=== PATIENT | male | born 1980 | race Caucasian/White ===

== ENCOUNTER 2019-03-01 11:23 | Emergency (ER) | payer OTHER ==
[~2019-03-01] VITALS: Ht 180.3 cm; Wt 145.6 kg
[~2019-03-01 11:23] MED LIST: AMOXICILLIN500 M1; CLINDAMYCIN300 M1 PO; GOOD SENSE ASPI81 M3 PO; LAC PO; LEVAQUIN750 MG PO; MOTRIN800 MG
[2019-03-01 11:32] VITALS: Ht 180.3 cm; Wt 145.6 kg
[2019-03-01 13:57] LABS: BASOPHIL % 0.8 % (0-2); PLATELET COUNT 295 x10^3mcL (130-400)
[2019-03-01 14:15] LABS: CALCIUM 9.1 mg/dL (8.5-10.1); CARBON DIOXIDE 31.4 mmol/L (21-32); CHLORIDE SERUM 105 mmol/L (98-107); CREATININE SERUM 0.8 mg/dL (0.7-1.3); GFR1 > 60 mL/min; GLUCOSE SERUM 131 mg/dL (74-106); POTASSIUM SERUM 4.1 mmol/L (3.5-5.1); SODIUM SERUM 142 mmol/L (136-145)
[2019-03-01 14:19] LABS: ALBUMIN 3.4 g/dL (3.4-5.0); ALKALINE PHOSPHATASE 88 U/L (46-116); ALT/SGPT 37 U/L (16-63); AMYLASE 70 U/L (25-115); AST/SGOT 23 U/L (15-37); BILIRUBIN TOTAL 0.3 mg/dL (0.20-1.00); LIPASE 380 IU/L (73-393)
[2019-03-01 16:59] VITALS: BP 160/103
== END 2019-03-01 16:59 | disposition home or self-care (01) ==
LOC: ED 11:23
PROVIDERS: Specialist
DX: K80.20 Calculus of gallbladder without cholecystitis without obstruction (principal); E66.9 Obesity, unspecified; F10.120 Alcohol abuse with intoxication, uncomplicated
CPT/HCPCS: 36415; J1885

== ENCOUNTER 2019-03-31 10:28 | Inpatient (IN) | payer OTHER ==
[~2019-03-31] VITALS: Ht 180.3 cm; Wt 133.8 kg
[2019-03-31 10:44] VITALS: Ht 180.3 cm; Wt 133.8 kg
--- NOTE | 2019-03-31 10:50 | NUR ---
pt bib adult son from home for one month old rt low back area pains,vas 10/10 now,radiates to rt low abd area.pt took rx meds at home.awaits er md evaluations/assessments.minda joseph.
--- NOTE | 2019-03-31 11:15 | NUR ---
er md at bedside too evaluations/assessments.minda joseph.adult son bedside.awaits reevaluations.
--- NOTE | 2019-03-31 11:45 | NUR ---
IV ACCESS started aseptically with blood drawn/sent to lab,ivf started.iv meds given per er md orders.pt tolerated procedures with no incidents.awaits test results,reevaluations.minda joseph.
[2019-03-31 11:54] LABS: BASOPHIL % 1.5 % (0-2); PLATELET COUNT 316 x10^3mcL (130-400); RED CELL DISTRIBUTION WIDTH 12.9 % (11.5-14.5)
[2019-03-31 12:19] LABS: CALCIUM 9.4 mg/dL (8.5-10.1); CARBON DIOXIDE 25.1 mmol/L (21-32); CHLORIDE SERUM 101 mmol/L (98-107); CREATININE SERUM 1.1 mg/dL (0.7-1.3); GFR1 > 60 mL/min; GLUCOSE SERUM 123 mg/dL (74-106); POTASSIUM SERUM 4.2 mmol/L (3.5-5.1); SODIUM SERUM 140 mmol/L (136-145)
[2019-03-31 12:24] LABS: ALBUMIN 3.8 g/dL (3.4-5.0); ALKALINE PHOSPHATASE 121 U/L (46-116); ALT/SGPT 31 U/L (16-63); AST/SGOT 31 U/L (15-37); BILIRUBIN TOTAL 0.68 mg/dL (0.20-1.00); LIPASE 313 IU/L (73-393)
--- NOTE | 2019-03-31 14:43 | NUR ---
er md at bedside for reevaluations.adult female relative bedside.awaits reevaluations,md consult,bed assignment.minda joseph.
--- NOTE | 2019-03-31 15:22 | NUR ---
RESTING TAM ROUSSEAU.AWAITS MD CONSULT,REEVALUATIONS.
--- NOTE | 2019-03-31 16:15 | NUR ---
MD CONSULT AT BEDSIDE FOR EVALUATIONS/ASSESSMNETS.TAM ROUSSEAU.ADULT SON BEDSIDE TRANSLATING.AWAITS REEVALUATIONS.
--- NOTE | 2019-03-31 16:40 | NUR ---
DR. GEE HERE, SHE IS W/ DR. DEYVI ZHANG. SHE STATES THEY WERE CALLED BY DR. HOUSE TO CONSULT. SHE STATES THEY SEE ALL [facility] SURGICAL PATIENTS. WE HAD CALLED DR. PLAZA WHO IS PUBLIC POLICY MANAGER FOR SURGERY TODAY & HE HAS ALREADY CAME DOWN & SAW THE PT. WE CALLED DR. PLAZA BACK, APOLOGISZED, & EXPLAINED THE SITATION & THAT DR. DEYVI ZHANG WILL BE THE SURGEON.
--- NOTE | 2019-03-31 16:44 | NUR ---
MD/SURGEON AT BEDSIDE FOR EVALUATIONS/ASSESSMENTS.TAM ROUSSEAU.AWAITS BED ASSIGNMENT,REEVALUATIONS.2 ADULT FAMILY BEDSIDE.
--- NOTE | 2019-03-31 16:57 | NUR ---
ATTEMPTED TO GIVE FLOOR REPORT,RN assigned kvng rn still in admission process on current pt.cone formerortho rn jacek rn made aware.
--- NOTE | 2019-03-31 17:21 | NUR ---
PT ENDORSED TO/ACCEPTED BY [facility].AWAITS [facility]SP[facility],REEVALUATIONS.
--- NOTE | 2019-03-31 17:21 | NUR ---
RECEIVED REPORT FROM CANDIE CASTRO IN ED. AWAITING PATIENT ARRIVAL TO FLOOR.
[2019-03-31] MEDS ORDERED: TRAMADOL HCL50 MG ×2 (17:22→17:25)
[2019-03-31] MEDS ORDERED: PROTONIX20 MG ×2 (17:23→17:25)
[2019-03-31] MEDS ORDERED: NORCO1 TA2 (17:23)
[2019-03-31] MEDS ORDERED: APAP/HYDROCODON1 T13 (17:25)
[2019-03-31 17:50] VITALS: BP 136/76
--- NOTE | 2019-03-31 17:59 | NUR ---
RECEIVED PT FROM ER, PT ADMIT FOR PANCREATIC MASS, PT IS A/O X4, VERBAL RESPONSIVE, ABLE TO TELL WHAT HE NEEDS. LUNG SOUND CLEAR BILATERAL, NO COUGH, NO SOB, PT IS ON TELE 8, NSR, DENY ANY CHEST PAIN, BOWEL SOUND HYPOACTIVE, NO DISTENTION, BUT C/O RIGHT FLANK PAIN 10/10, PEDAL PULSE PRESENT BOTH FEET, NO EDEMA, IV AT RIGHT AC, NO LEAKING, NO INFILTRATION. ALL ADLS ASSIST, ALL NEED MET, CALL LIGHT IN REACH, WILL CONTINUE TO MONITOR.
--- NOTE | 2019-03-31 18:31 | NUR ---
PATIENT BEING TAKEN DOWN FOR HIDA SCAN VIA WHEELCHAIR NOW.
--- NOTE | 2019-03-31 19:30 | NUR ---
REPORT GIVEN TO TESSA CASTRO. PATIENT IS STILL DOWNSTAIRS FOR HIDA SCAN. AWAITING PATIENT RETURN TO FLOOR. ALL QUESTIONS AND CONCERNS ADDRESSED. ALL CARES ENDORSED.
--- NOTE | 2019-03-31 20:45 | NUR ---
RECIEVED PT FROM NUCLEAR MEDICINE, PT STATES THEYRE IN A LOT OF PAIN MEDICATED PRN PER PHYSICIANS ORDER.
[2019-03-31 22:00] VITALS: BP 103/54
[2019-03-31 22:50] VITALS: BP 142/77
--- NOTE | 2019-03-31 22:59 | NUR ---
PT REPORTS PAIN HAS RETURNED TO 10/10 TO UPPER ABD AND RADIATING TO BACK, MEDICATED PRN PER ORDER, WILL CONTINUE TO MONITOR
[2019-04-01 00:55] VITALS: BP 130/70
--- NOTE | 2019-04-01 02:00 | NUR ---
PT RESTING IN BED WITH AT BEDSIDE, PT REPORTS PAIN IS MORE CONTROLED AT THIS TIME, BUT PATIENT IS STILL GUARDING , ALL NEEDS ATTENDED TO AT THIS TIME, SAFETY PRECAUTIONS IN PLACE, WILL CONTINUE TO MONITOR
--- NOTE | 2019-04-01 04:57 | NUR ---
PT REPORTS PAIN STILL UNCONTROLLED AFTER ADMINISTRATIONS OF MORPHINE, ADMINISTERED DILAUDID IV , BLOOD PRESSURE 122/68, HR 87, RR 20, WILL CONTINUE TO MONITOR
[2019-04-01 05:34] VITALS: BP 121/72
--- NOTE | 2019-04-01 06:03 | NUR ---
PT WAS IN IN INTERMITENT PAIN THROUGH SHIFT WHICH WAS TREATED WITH PRN ADMINISTRATION OF PAIN MEDS THAT BROUGHT PAIN DOWN TO AN TOLERABLE LEVEL PER PATIENT, REMAINED AT BEDSIDE THROUGH EVENING, ALL PT NEEDS ATTENDED TO, WILL CONTINUE TO MONITOR AND ENDORSE CARE
[2019-04-01 06:36] LABS: BASOPHIL % 0.6 % (0-2); PLATELET COUNT 239 x10^3mcL (130-400); RED CELL DISTRIBUTION WIDTH 12.8 % (11.5-14.5)
[2019-04-01 07:08] LABS: ALKALINE PHOSPHATASE 95 U/L (46-116); ALT/SGPT 35 U/L (16-63); AST/SGOT 29 U/L (15-37); BILIRUBIN TOTAL 0.5 mg/dL (0.20-1.00); CALCIUM 8.5 mg/dL (8.5-10.1); CARBON DIOXIDE 25.6 mmol/L (21-32); CHLORIDE SERUM 107 mmol/L (98-107); CREATININE SERUM 0.8 mg/dL (0.7-1.3); GFR1 > 60 mL/min; GLUCOSE SERUM 108 mg/dL (74-106); POTASSIUM SERUM 4.1 mmol/L (3.5-5.1); SODIUM SERUM 143 mmol/L (136-145); TOTAL PROTEIN, SERUM 7.6 g/dL (6.4-8.2)
[2019-04-01 07:11] LABS: ALBUMIN 3.2 g/dL (3.4-5.0)
--- NOTE | 2019-04-01 09:45 | NUR ---
DR DICKERSON AND DR GEE WAS AT BEDSIDE W/ PASSENGER ATTENDANT. INFORMED PATIENT OF CT RESULTS SHOWING PANCREAS MASS AND OPTIONS FOR TREATMENT PLAN, NO NECESSARY SURGICAL INTERVENTION FOR CHOLECYSTITIS AT THIS TIME. PATIENT MAY BE DISCHARGED HOME ON PAIN MEDS/NARCOTICS FOR PAIN MANAGMENT UNTIL OUTPATIENT APPOINTMENT WITH DR DICKERSON ON WEDNESDAY FOR FURTHER DIAGNOSTICS/BIOPSY. PATIENT MAY EAT/DRINK WATER NOW. PATIENT AND AT BEDSIDE VERBALIZED UNDERSTANDING AND COOPERATIVE W/ PLAN.
[2019-04-01 11:55] VITALS: BP 126/78
--- NOTE | 2019-04-01 13:21 | NUR ---
DR WILLSON WAS AT BEDSIDE, INFORMED DR OF PATIENT RECONSIDERING TO STAY INPATIENT- WORRIED ABOUT NOT BEING ABLE TO CONTROL PAIN WITH PRESCRIPTION EFFECTIVE CURRENT IVP MEDS HERE. DR WILLSON SPOKE W/ PATIENT AND FAMILY AND PLAN SET TO DISCHARGE PATIENT TODAY, FENTANYL PATCH ORDERED TO GIVE NOW. PER PHARMACYST, UNABLE TO VERIFY PATIENT DOES NOT MEET CRITERIA FOR MEDICATION (PATIENT NEEDS TO BE ON DILAUDID/MORPHINE FIRST FOR CERTAIN AMOUNT OF TIME). DR WILLSON ORDERED MS CONTIN INSTEADY AND MADE PRESCRIPTION, PER DR WILLSON SHRED FENTANYL PATCH PRESCRIPTION. MS CONTIN GIVEN TO PATIENT. WILL MONITOR RESPONSE.
--- NOTE | 2019-04-01 14:30 | NUR ---
PATIENT C/O PERSISTENT ABD PAIN NOT RELIEVED WITH MS CONTIN AFTER 1 HOUR ADMINISTRATION. REMINDED PATIENT AND FAMILY THAT PO MEDICATION TAKES TIME TO TAKE EFFECT. PATIENT C/O 10/10 ABD PAIN AND REQUESTING FOR IMMEDIATE RELIEF. MORPHINE IVP GIVEN FOR BREAKTHRU PAIN. WILL CONT TO MONITOR.
[2019-04-01 16:07] VITALS: BP 126/78
--- NOTE | 2019-04-01 16:58 | NUR ---
PATIENT C/O PERSISTENT PAIN THAT INTENSIFIED BACK AT 10/10, REQUESTING FOR IV MED. DR WILLSON MADE AWARE, NO IV PAIN MED PATIENT WILL STILL BE DISCHARGED TODAY PER . TELEPHONE READBACK ORDER RECEIVED FOR OXYCONTIN 20MG Q4HP. GIVEN AND EXPLAINED AGAIN THE PRESCRIPTION, WHEN AND HOW OFTEN TO TAKE. PATIENT VERBALIZED UNDERSTANDING AND REQUESTING TO BE DISCHARGED NOW. INSTRUCTIONS PROVIDED, IV DC'D CATH INTACT, TELE RETURNED TO STATION. ALL QUESTIONS/CONCERNS ADDRESSED. LEAVING UNIT VIA WHEELCHAIR.
== END 2019-04-01 16:58 | disposition home or self-care (01) | DRG 436 ==
LOC: ED 10:28 → DU 16:30 → MU 04-01 16:38
PROVIDERS: Emergency Medicine; ADMIT Internal Medicine Pulmonary Disease
DX: C25.9 Malignant neoplasm of pancreas, unspecified (principal); Z68.41 Body mass index [BMI] 40.0-44.9, adult; E66.9 Obesity, unspecified; K80.20 Calculus of gallbladder without cholecystitis without obstruction; Z80.1 Family history of malignant neoplasm of trachea, bronchus and lung; Z81.2 Family history of tobacco abuse and dependence; Z83.3 Family history of diabetes mellitus
CPT/HCPCS: 78226; A9537; G0378; J0696; J1170; J1885; J2270; J2405; J2543; J3490; J7030; J7042; Q0092; Q9967

== ENCOUNTER 2019-04-08 23:53 | Inpatient (IN) | payer OTHER ==
[~2019-04-08] VITALS: Ht 180.3 cm; Wt 135.0 kg
[~2019-04-08 23:53] MED LIST changes: +APAP/HYDROCODON1 T13; +NORCO1 TA2; +PROTONIX20 MG; +TRAMADOL HCL50 MG
[2019-04-09] VITALS (7 sets, daily range): BP systolic 118–142; BP diastolic 71–88
[2019-04-09 01:20] LABS: BASOPHIL % 0.5 % (0-2); PLATELET COUNT 301 x10^3mcL (130-400); RED CELL DISTRIBUTION WIDTH 12.9 % (11.5-14.5)
[2019-04-09 01:39] LABS: CHLORIDE SERUM 97 mmol/L (98-107); CREATININE SERUM 0.9 mg/dL (0.7-1.3); GFR1 > 60 mL/min; GLUCOSE SERUM 127 mg/dL (74-106); POTASSIUM SERUM 4.9 mmol/L (3.5-5.1); SODIUM SERUM 134 mmol/L (136-145)
[2019-04-09 01:57] LABS: ALKALINE PHOSPHATASE 130 U/L (46-116); ALT/SGPT 65 U/L (16-63); AMYLASE 57 U/L (25-115); AST/SGOT 45 U/L (15-37); BILIRUBIN TOTAL 0.9 mg/dL (0.20-1.00); LIPASE 406 IU/L (73-393); TOTAL PROTEIN, SERUM 8.1 g/dL (6.4-8.2)
[2019-04-09 01:58] LABS: ALBUMIN 3.1 g/dL (3.4-5.0)
[2019-04-09] MEDS ORDERED: OXYCODONE HYDRO10 M1 PO (05:23)
[2019-04-09] MEDS ORDERED: MORPHINE SULFAT30 M6 PO (05:24)
[2019-04-09 07:29] LABS: PHOSPHOROUS 4.5 mg/dL (2.5-4.9)
[2019-04-10 05:47] VITALS: BP 139/80
[2019-04-10 07:16] LABS: BASOPHIL % 0.8 % (0-2); PLATELET COUNT 316 x10^3mcL (130-400); RED CELL DISTRIBUTION WIDTH 12.9 % (11.5-14.5)
[2019-04-10 07:33] LABS: CALCIUM 9.1 mg/dL (8.5-10.1); CARBON DIOXIDE 26.6 mmol/L (21-32); CHLORIDE SERUM 100 mmol/L (98-107); CREATININE SERUM 0.8 mg/dL (0.7-1.3); GFR1 > 60 mL/min; GLUCOSE SERUM 105 mg/dL (74-106); POTASSIUM SERUM 4.2 mmol/L (3.5-5.1); SODIUM SERUM 137 mmol/L (136-145)
[2019-04-10 08:11] VITALS: BP 124/78
[2019-04-10] MEDS ORDERED: LACTULOSE10 GM/152 PO (11:39)
[2019-04-10 12:09] VITALS: BP 123/81
[2019-04-10 12:58] VITALS: BP 123/81
[2019-04-10 20:46] VITALS: BP 121/80
[2019-04-11 05:03] VITALS: BP 120/79
[2019-04-11 08:43] VITALS: BP 112/82
[2019-04-11 12:33] VITALS: BP 139/84
[2019-04-11 12:53] VITALS: BP 136/82
== END 2019-04-11 15:35 | disposition home or self-care (01) | DRG 392 ==
LOC: ED 23:53 → DU 04-09 04:31
PROVIDERS: Emergency Medicine; Internal Medicine; ADMIT Internal Medicine Pulmonary Disease
DX: K59.00 Constipation, unspecified (principal); R16.0 Hepatomegaly, not elsewhere classified; K86.89 Other specified diseases of pancreas; Z85.05 Personal history of malignant neoplasm of liver; E66.01 Morbid (severe) obesity due to excess calories
CPT/HCPCS: C9113; G0378; J1170; J1650; J2270; J2405; J3010